=== PATIENT | male | born 1950 | race Two or more races ===

== ENCOUNTER 2019-03-05 07:18 | Outpatient (CLI) | payer OTHER | END 2019-03-05 13:22 | disposition home or self-care (01) | LOC: LAB 07:18 | DX: E03.8 Other specified hypothyroidism (principal); E78.2 Mixed hyperlipidemia; E11.21 Type 2 diabetes mellitus with diabetic nephropathy; D64.89 Other specified anemias; E11.65 Type 2 diabetes mellitus with hyperglycemia ==

== ENCOUNTER 2019-12-10 08:36 | Outpatient (CLI) | payer OTHER | END 2019-12-10 08:39 | disposition home or self-care (01) | LOC: RAD 08:36 | DX: J45.998 Other asthma (principal) ==

== ENCOUNTER 2021-05-11 10:23 | Outpatient (CLI) | payer OTHER | END 2021-05-11 10:25 | disposition home or self-care (01) | LOC: RAD 10:23 | PROVIDERS: ATTEND Specialist | DX: I10 Essential (primary) hypertension (principal); J45.998 Other asthma ==

== ENCOUNTER 2021-08-10 08:00 | Outpatient (CLI) | payer OTHER | END 2021-08-10 08:30 | disposition home or self-care (01) | LOC: PPH VACUNA 08:00 | PROVIDERS: ATTEND Emergency Medicine Pediatric Emergency Medicine | DX: Z23 Encounter for immunization (principal) ==

== ENCOUNTER 2021-11-16 08:30 | Outpatient (CLI) | payer OTHER | END 2021-11-16 08:36 | disposition home or self-care (01) | LOC: RAD 08:30 | PROVIDERS: ATTEND Specialist | DX: J45.998 Other asthma (principal) ==

== ENCOUNTER 2022-02-01 08:00 | Outpatient (CLI) | payer OTHER | END 2022-02-01 08:30 | disposition home or self-care (01) | LOC: PPH VACUNA 08:00 | PROVIDERS: ATTEND Emergency Medicine Pediatric Emergency Medicine | DX: Z23 Encounter for immunization (principal) ==

== ENCOUNTER 2022-05-24 08:19 | Outpatient (CLI) | payer OTHER | END 2022-05-24 08:21 | disposition home or self-care (01) | LOC: SONOGRAMA 08:19 | PROVIDERS: ATTEND Specialist | DX: I71.02 Dissection of abdominal aorta (principal) ==

== ENCOUNTER 2022-11-22 09:10 | Outpatient (CLI) | payer OTHER | END 2022-11-22 09:30 | disposition home or self-care (01) | LOC: RAD 09:10 | PROVIDERS: ATTEND Specialist | DX: M70.61 Trochanteric bursitis, right hip (principal); M70.60 Trochanteric bursitis, unspecified hip ==

== ENCOUNTER 2023-02-14 08:04 | Outpatient (CLI) | payer OTHER | END 2023-02-14 08:20 | disposition home or self-care (01) | LOC: RAD 08:04 | PROVIDERS: ATTEND Specialist | DX: J45.998 Other asthma (principal) ==

== ENCOUNTER → 2023-02-18 | Outpatient (CLI) | payer OTHER | END | disposition home or self-care (01) | LOC: TOM 10:20 | PROVIDERS: ATTEND Specialist | DX: K40.30 Unilateral inguinal hernia, with obstruction, without gangrene, not specified as recurrent (principal) ==

== ENCOUNTER 2023-11-21 08:36 | Outpatient (CLI) | payer OTHER | END 2023-11-21 08:39 | disposition home or self-care (01) | LOC: RAD 08:36 | PROVIDERS: ATTEND Specialist | DX: I10 Essential (primary) hypertension (principal) ==

== ENCOUNTER 2025-05-20 08:30 | Outpatient (CLI) | payer OTHER | END 2025-05-20 08:36 | disposition home or self-care (01) | LOC: SONOGRAMA 08:30 | PROVIDERS: ATTEND Specialist/Technologist, Other Nephrology | DX: R10.9 Unspecified abdominal pain (principal); N18.30 Chronic kidney disease, stage 3 unspecified; R31.9 Hematuria, unspecified ==

== ENCOUNTER 2025-06-24 09:48 | Outpatient (CLI) | payer OTHER | END 2025-06-24 09:49 | disposition home or self-care (01) | LOC: RAD 09:48 | PROVIDERS: ATTEND Specialist | DX: J45.998 Other asthma (principal) ==